=== PATIENT | female | born 1970 | race Hispanic/Latino ===

== ENCOUNTER 2018-11-13 16:20 | Emergency (ER) | payer OTHER ==
[2018-11-13] MEDS ORDERED: IBUPROFEN 600 MG TABLET ONE (16:57)
== END 2018-11-13 17:08 | disposition home or self-care (01) ==
LOC: EDH 16:20
DX: S82.091A Other fracture of right patella, initial encounter for closed fracture (principal); Z88.0 Allergy status to penicillin; W18.39XA Other fall on same level, initial encounter; Y93.01 Activity, walking, marching and hiking; Y92.410 Unspecified street and highway as the place of occurrence of the external cause; Y99.8 Other external cause status
CPT/HCPCS: 29505; 73562